=== PATIENT | male | born 1955 | race Caucasian/White ===

== ENCOUNTER 2016-05-11 16:13 | Inpatient (IN) | payer BC ==
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
--- NOTE | ~2016-05-11 | OP ---
Record Of Operation [facility] [address] [place]. [address] NAME: MEGAN SHOEMAKER : 59 STATUS : ADM IN PAT#: [id number] AGE: 60 ADM/REG DATE : 05/11/16 MR#: [id number] REPORT SERV DATE: 05/18/16 DICTATED BY: GIOVANA GARRISON DATE: 05/17/16 REPORT STATUS : Draft TRANSCRIBED BY: MODL DATE: 05/17/16 DATE OF PROCEDURE: 05/17/2016 PREOPERATIVE DIAGNOSIS: Septic right knee. POSTOPERATIVE DIAGNOSIS: Synovitis and septic knee. OPERATIVE PROCEDURE: Extensive synovectomy and debridement with arthroscopic lavage, right knee. OP REPORT: After successful induction of general inhalation anesthesia, administration of 1 g of vancomycin perioperative, the patient's thigh knee and leg were scrubbed, prepped, and draped usual sterile fashion. The leg was elevated and pneumatic tourniquet inflated to 300 mmHg without the use of the Esmarch bandage. A spinal needle was used to probe the lateral joint line. A standard medial lateral parapatellar portals were established under direct visualization. A cannula was placed first before reducing the scope and draining 30-40 mL of grossly purulent some slightly blood-tinged synovial fluid. A large shaver was introduced in the medial portal beginning in the medial compartment. Extensive synovectomy and debridement of scar tissue from previous fracture was carried out. There was some difficulty initially with visualization because of the marked scarring, 16-20 L of fluid were utilized to wash out the knee and accomplish of debridement. The suprapatellar pouch was debrided through both knee lateral portals as well as the intercondylar area in the lateral compartment. There was incongruity irregularity noted of the tibial plateau from the markedly comminuted fracture, but the menisci were surprisingly in good condition. At the occlusion of the procedure, another 3-4 L was run through and suctioned from the knee. The knee was instilled with 0.5% Marcaine with epinephrine. Incisions were closed with 3-0 nylon. A sterile bulky compression dressing was placed. The patient was stable intraoperatively. LITTLE/HELENA Giovana Garrison M.D. / [id number] CC: Elton Kemp MD Unknown
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
--- NOTE | ~2016-05-11 | OP ---
Record Of Operation [facility] [address] [place]. [address] NAME: MEGAN SHOEMAKER : 59 STATUS : ADM IN PAT#: [id number] AGE: 60 ADM/REG DATE : 05/11/16 MR#: [id number] REPORT SERV DATE: 05/20/16 DICTATED BY: GIOVANA GARRISON DATE: 05/19/16 REPORT STATUS : Draft TRANSCRIBED BY: HELENA DATE: 05/19/16 DATE OF PROCEDURE: 05/19/2016 PREOPERATIVE DIAGNOSES: 1. Right septic knee. 2. Posttraumatic synovitis. POSTOPERATIVE DIAGNOSES: 1. Right septic knee. 2. Posttraumatic synovitis. OPERATIVE PROCEDURE: Arthroscopic debridement and lavage of right knee. DESCRIPTION OF PROCEDURE: The patient was brought to operating room and after successful induction of general inhalation anesthesia, and administration of 1 g of Ancef preoperatively and intraoperatively was utilized. Right thigh, knee, leg, foot, and ankle scrubbed prepped and draped in usual sterile fashion. Pneumatic tourniquet was in place, but was not inflated. The previous sutures were removed and then the medial lateral portals were opened up with a trocar and cannula. The scope was introduced laterally and the suprapatellar pouch was examined with a large 5.5 serrated shaver utilized in the medial portal to debride postoperative hematoma and reactive synovitis in the suprapatellar pouch medially, centrally, as well as lateral compartment. Extensive lavage and debridement was carried out. There was no evidence of any purulent material at this point, but because of the bleeding and inflammatory changes, it was difficult to be certain of this. Approximately 20 to 25 L of fluid were run through suction and irrigated through the knee. At the conclusion of the procedure, it was attempted to be suctioned dry, the portals were left open to allow drainage. A sterile bulky compression dressing was utilized. The patient was stable intraoperatively. An estimated blood loss was 100 mL. He was awakened and returned to recovery room in satisfactory condition. LITTLE/HELENA Giovana Garrison M.D. / [id number] CC: Elton Kemp MD
[~2016-05-11 16:13] MED LIST: ACET500CAP PO; ACETIC ACID OT; ASAB PO; ASPER-FLEX10 % TOP; AT25 PO; ATEN50 PO; BACDS PO; CEFT5 PO; CENTRUM PO; CHLORASEPTIC PO; CLARIT10 PO; CRESTOR5 MG PO; DIABETA5 PO; FLONASE NAS; GGEXPSF PO; GGEXPUD PO; GLUCOPHAGE1000 MG PO; HALF81 PO; HUMALOG SC; HUMALOGPEN SC; IMOD PO; JANUVIA100 MG PO; LANTUSCART SC; LIPITOR40 PO; LOP25 PO; LOVENOX40 SC; METHOC500B PO; MIRALAXPKT PO; MVI PO; NYS500UDL PO; PERCOCET1 TA4 PO; PR12.5 PO; PRADAXA150 MG PO; PRILOSEC40 MG PO; PRIN20 PO; ROXICODONE15 MG PO; SOD CHLORIDE1 G1 PO; T PO; TUMSROLL PO; VITC500 PO; VITD PO; XARELTO20 MG PO; Z300 PO; [UNRECOGNIZED DRUG - OTHER] EX; [UNRECOGNIZED DRUG - OTHER] MT; [UNRECOGNIZED DRUG - OTHER] NAS; [UNRECOGNIZED DRUG - OTHER] TOP
[2016-05-11 16:23] LABS: ALLENS TEST Pos; BE (BASE EXCESS) -9.7 MEQ/L (0 +/- 2.5); CARBOXYHEMOGLOBIN 1.4 % (0-3); HCO3 (ACTUAL BICARBONATE) 11.6 MEQ/L (23-27); HEMOBLOGIN CONTENT 14.7 G/DL (14-18); INSTRUMENT SERIAL # 8087; METHEMOGLOBIN 0.2 % (0-3); O2 CONTENT 19.7 VOL% (18-24); PCO2 (CO2 TENSION) 18 MMHG (35-45); PO2 (O2 TENSION) 81 MMHG (79-93); SAMPLE Arterial; pH 7.44 (7.37-7.43)
[2016-05-11 16:45] LABS: INTERNATIONAL NORMAL RATI 1.5 UNITS (-); PARTIAL THROMBO TIME 32.3 SEC (22.5-37.2); PROTIME (NOT ORD) 18.4 SEC (12.0-14.5)
[2016-05-11 16:46] LABS: ER CBC TAT 0 Hrs 15 Mins; HEMATOCRIT 40.7 % (40.0-51.0); HEMOGLOBIN 14.5 g/dL (13.6-17.8); MEAN CORPUS HGB CONC 35.6 g/dL (32.0-36.0); MEAN CORPUSCULAR HEMOGLOB 30.9 pg (26.0-34.0); MEAN PLATELET VOLUME 10.3 fL (9.2-13.0); PLATELET COUNT 456 10/3/uL (150-400); RED CELL COUNT 4.69 10/6/uL (4.7-6.1); WHITE BLOOD CELLS 20.8 10/3/uL (4.5-10.5)
[2016-05-11 16:47] LABS: MANUAL DIFF YES %; MEAN CORPUSCULAR VOLUME 86.8 fL (80-100); RBC DISTRIBUTION WIDTH 12.2 % (12.0-16.0)
[2016-05-11] MEDS ORDERED: XARELTO20 MG PO (16:52)
[2016-05-11] MEDS ORDERED: LOP25 PO (16:52)
[2016-05-11] MEDS ORDERED: Z300 PO (16:52)
[2016-05-11] MEDS ORDERED: LANTUS SC (16:53)
[2016-05-11] MEDS ORDERED: ASABAYER PO (16:53)
[2016-05-11] MEDS ORDERED: HUMALOG SC (16:53)
[2016-05-11] MEDS ORDERED: ZESTRIL20 MG PO (16:53)
[2016-05-11] MEDS ORDERED: CALTRA600D PO (16:53)
[2016-05-11 16:57] LABS: LACTATE 6.2 MMOL/L (0.3-2.4)
[2016-05-11 16:58] LABS: A/G RATIO 0.5 (0.7-1.9); ALBUMIN 2.8 G/DL (3.5-5.0); ALKALINE PHOSPHATASE 90 U/L (45-117); BUN (BLOOD UREA NITROGEN) 33 MG/DL (6-23); CALCIUM, SERUM 11.1 MG/DL (8.5-10.4); CHLORIDE, SERUM 82 MMOL/L (96-112); CO2 (CARBON DIOXIDE) 17 MMOL/L (24-34); CPK 39 U/L (0-200); CREATININE 1.69 MG/DL (0.70-1.30); GFR AFRICAN AMERICAN 51 ML/MIN (>=60); GFR NON AFRICAN AMERICAN 44 ML/MIN (>=60); GLOBULIN 5.7 G/DL (2.5-4.1); GLUCOSE, SERUM 421 MG/DL (60-99); POTASSIUM, SERUM 4.2 MMOL/L (3.5-5.3); SGOT(AST) 8 U/L (5-40); SGPT(ALT) 13 U/L (5-65); SODIUM, SERUM 122 MMOL/L (135-148); TOTAL BILIRUBIN 0.7 MG/DL (0-1.2); TOTAL PROTEIN 8.5 G/DL (6.0-8.5); TROPONIN I <0.02 NG/ML (<0.05)
[2016-05-11 16:59] LABS: BAND NEUTROPHILS 33 %; ER DIFF TAT 0 Hrs 28 Mins; LYMPHOCYTES 5 %; LYMPHOCYTES ABSOLUTE (CALC) 1.04 10/3/uL (0.67-4.30); MONOCYTES 2 %; MONOCYTES ABSOLUTE (CALC) 0.42 10/3/uL (0.21-1.20); NEUTROPHILS ABSOLUTE (CALC) 19.34 10/3/uL (2.02-8.40); PLATELET ESTIMATE SLT INC (ADEQUATE); SEGMENTED NEUTROPHIL (0) 60 %; TOTAL NUCLEATED CELLS 100
[2016-05-11 18:37] LABS: ASCORBIC ACID (UR NOT ORDER) NEG (NEG); BILIRUBIN, URINE NEGATIVE (NEG); ER URINALYSIS TAT 0 Hrs 12 Mins; KETONE, URINE 80 MG/DL (NEG); LEUKOCYTE ESTERASE(NOT OR NEG (NEG); NITRITE (URINE) NEG (NEG); WBC (NOT ORDERED) (RFLEX) 2 (0-5)
[2016-05-12 01:57] LABS: HEMOGLOBIN 11.3 g/dL (13.6-17.8); MEAN CORPUS HGB CONC 35.2 g/dL (32.0-36.0); MEAN CORPUSCULAR VOLUME 85.1 fL (80-100); MEAN PLATELET VOLUME 10.2 fL (9.2-13.0); PLATELET COUNT 351 10/3/uL (150-400); RBC DISTRIBUTION WIDTH 12.5 % (12.0-16.0); RED CELL COUNT 3.77 10/6/uL (4.7-6.1); WHITE BLOOD CELLS 15.2 10/3/uL (4.5-10.5)
[2016-05-12 01:58] LABS: HEMATOCRIT 32.1 % (40.0-51.0); MANUAL DIFF YES %
[2016-05-12 02:09] LABS: GFR AFRICAN AMERICAN 77 ML/MIN (>=60); GFR NON AFRICAN AMERICAN 66 ML/MIN (>=60); POTASSIUM, SERUM 3.9 MMOL/L (3.5-5.3); SGOT(AST) 8 U/L (5-40); SGPT(ALT) 11 U/L (5-65)
[2016-05-12 02:14] LABS: A/G RATIO 0.5 (0.7-1.9); ALBUMIN 2.1 G/DL (3.5-5.0); ALKALINE PHOSPHATASE 58 U/L (45-117); BUN (BLOOD UREA NITROGEN) 37 MG/DL (6-23); CHLORIDE, SERUM 96 MMOL/L (96-112); CO2 (CARBON DIOXIDE) 25 MMOL/L (24-34); GLOBULIN 4.3 G/DL (2.5-4.1); GLUCOSE, SERUM 215 MG/DL (60-99); SODIUM, SERUM 133 MMOL/L (135-148); TOTAL BILIRUBIN 0.2 MG/DL (0-1.2); TOTAL PROTEIN 6.4 G/DL (6.0-8.5)
[2016-05-12 02:28] LABS: BAND NEUTROPHILS 17 %; BASOPHILS 1 %; BASOPHILS ABSOLUTE (CALC) 0.15 10/3/uL (0.0-0.16); LYMPHOCYTES 7 %; LYMPHOCYTES ABSOLUTE (CALC) 1.06 10/3/uL (0.67-4.30); MONOCYTES 1 %; MONOCYTES ABSOLUTE (CALC) 0.15 10/3/uL (0.21-1.20); NEUTROPHILS ABSOLUTE (CALC) 13.83 10/3/uL (2.02-8.40); PLATELET ESTIMATE ADQ (ADEQUATE); SEGMENTED NEUTROPHIL (0) 74 %; TOTAL NUCLEATED CELLS 100
[2016-05-12 02:29] LABS: RBC MORPHOLOGY NORM (NORMAL)
[2016-05-12 02:59] LABS: PROCALCITONIN 23.84 ng/mL (<0.5)
[2016-05-12 04:06] LABS: INSTRUMENT SERIAL # 8083; PCO2 (CO2 TENSION) 30 MMHG (35-45); PO2 (O2 TENSION) 62 MMHG (79-93); pH 7.44 (7.37-7.43)
[2016-05-12 04:07] LABS: ALLENS TEST Pos; HEMOBLOGIN CONTENT 13.8 G/DL (14-18); METHEMOGLOBIN 0.1 % (0-3); O2 CONTENT 17.9 VOL% (18-24); OPERATOR ID 32193; SAMPLE Arterial
[2016-05-12 06:49] LABS: BUN (BLOOD UREA NITROGEN) 35 MG/DL (6-23); CALCIUM, SERUM 8.9 MG/DL (8.5-10.4); CHLORIDE, SERUM 97 MMOL/L (96-112); CO2 (CARBON DIOXIDE) 22 MMOL/L (24-34); CREATININE 0.86 MG/DL (0.70-1.30); GFR AFRICAN AMERICAN 111 ML/MIN (>=60); GFR NON AFRICAN AMERICAN 96 ML/MIN (>=60); GLUCOSE, SERUM 190 MG/DL (60-99); POTASSIUM, SERUM 3.7 MMOL/L (3.5-5.3); SODIUM, SERUM 129 MMOL/L (135-148)
[2016-05-12 12:50] LABS: BUN (BLOOD UREA NITROGEN) 34 MG/DL (6-23); CALCIUM, SERUM 9.1 MG/DL (8.5-10.4); CHLORIDE, SERUM 95 MMOL/L (96-112); CO2 (CARBON DIOXIDE) 25 MMOL/L (24-34); CREATININE 0.76 MG/DL (0.70-1.30); GFR AFRICAN AMERICAN 117 ML/MIN (>=60); GFR NON AFRICAN AMERICAN 101 ML/MIN (>=60); GLUCOSE, SERUM 196 MG/DL (60-99); POTASSIUM, SERUM 3.8 MMOL/L (3.5-5.3); SODIUM, SERUM 131 MMOL/L (135-148)
[2016-05-12 14:33] LABS: ALBUMIN 2.2 G/DL (3.5-5.0); ALKALINE PHOSPHATASE 57 U/L (45-117); SGOT(AST) 12 U/L (5-40); SGPT(ALT) 12 U/L (5-65); TOTAL BILIRUBIN 0.4 MG/DL (0-1.2); TOTAL PROTEIN 5.6 G/DL (6.0-8.5)
[2016-05-12 14:34] LABS: DIRECT BILIRUBIN < 0.1 MG/DL (0.0-0.4); INDIRECT BILIRUBIN(NOT ORDER) 0.3 MG/DL (0.1-0.9)
[2016-05-12 19:06] LABS: BUN (BLOOD UREA NITROGEN) 31 MG/DL (6-23); CALCIUM, SERUM 9.2 MG/DL (8.5-10.4); CHLORIDE, SERUM 97 MMOL/L (96-112); CO2 (CARBON DIOXIDE) 24 MMOL/L (24-34); CREATININE 0.72 MG/DL (0.70-1.30); GFR AFRICAN AMERICAN 119 ML/MIN (>=60); GFR NON AFRICAN AMERICAN 103 ML/MIN (>=60); GLUCOSE, SERUM 205 MG/DL (60-99); POTASSIUM, SERUM 3.4 MMOL/L (3.5-5.3); SODIUM, SERUM 130 MMOL/L (135-148)
[2016-05-12 22:41] LABS: CALCIUM, SERUM 9.4 MG/DL (8.5-10.4); CHLORIDE, SERUM 98 MMOL/L (96-112); CO2 (CARBON DIOXIDE) 23 MMOL/L (24-34); CREATININE 0.75 MG/DL (0.70-1.30); GFR AFRICAN AMERICAN 117 ML/MIN (>=60); GFR NON AFRICAN AMERICAN 101 ML/MIN (>=60); GLUCOSE, SERUM 178 MG/DL (60-99); POTASSIUM, SERUM 3.6 MMOL/L (3.5-5.3); SODIUM, SERUM 131 MMOL/L (135-148)
[2016-05-12 22:42] LABS: BUN (BLOOD UREA NITROGEN) 27 MG/DL (6-23)
[2016-05-13 04:43] LABS: BUN (BLOOD UREA NITROGEN) 24 MG/DL (6-23); CALCIUM, SERUM 8.9 MG/DL (8.5-10.4); CHLORIDE, SERUM 96 MMOL/L (96-112); CO2 (CARBON DIOXIDE) 24 MMOL/L (24-34); CREATININE 0.53 MG/DL (0.70-1.30); GFR AFRICAN AMERICAN 135 ML/MIN (>=60); GFR NON AFRICAN AMERICAN 117 ML/MIN (>=60); GLUCOSE, SERUM 189 MG/DL (60-99); POTASSIUM, SERUM 3.6 MMOL/L (3.5-5.3); SODIUM, SERUM 131 MMOL/L (135-148)
[2016-05-13 04:46] LABS: PHOSPHORUS, SERUM 1.8 MG/DL (2.5-4.5)
[2016-05-13 05:20] LABS: BASOPHILS 0.1 %; BASOPHILS ABSOLUTE 0.02 10/3/uL (0.0-0.16); EOSINOPHILS 0.6 %; EOSINOPHILS ABSOLUTE 0.11 10/3/uL (0.0-0.53); HEMATOCRIT 31.2 % (40.0-51.0); HEMOGLOBIN 10.7 g/dL (13.6-17.8); IMMATURE GRANULOCYTES 0.4 %; IMMATURE GRANULOCYTES ABSOLUTE 0.08 10/3/uL (0.0-0.11); LYMPHOCYTES 10.3 %; LYMPHOCYTES ABSOLUTE 1.84 10/3/uL (0.67-4.30); MEAN CORPUS HGB CONC 34.3 g/dL (32.0-36.0); MEAN CORPUSCULAR HEMOGLOB 30.1 pg (26.0-34.0); MEAN PLATELET VOLUME 10.1 fL (9.2-13.0); MONOCYTES ABSOLUTE 1.79 10/3/uL (0.21-1.20); NEUTROPHILS 78.6 %; NEUTROPHILS ABSOLUTE 14.06 10/3/uL (2.02-8.40); PLATELET COUNT 349 10/3/uL (150-400); RBC DISTRIBUTION WIDTH 12.7 % (12.0-16.0); RED CELL COUNT 3.55 10/6/uL (4.7-6.1); WHITE BLOOD CELLS 17.9 10/3/uL (4.5-10.5)
[2016-05-13 05:30] LABS: MANUAL DIFF NO %; MEAN CORPUSCULAR VOLUME 87.9 fL (80-100)
[2016-05-14 04:19] LABS: BASOPHILS 0.2 %; BASOPHILS ABSOLUTE 0.03 10/3/uL (0.0-0.16); EOSINOPHILS 1.4 %; HEMATOCRIT 30.9 % (40.0-51.0); HEMOGLOBIN 10.7 g/dL (13.6-17.8); IMMATURE GRANULOCYTES 0.5 %; IMMATURE GRANULOCYTES ABSOLUTE 0.07 10/3/uL (0.0-0.11); LYMPHOCYTES 15.4 %; LYMPHOCYTES ABSOLUTE 2.27 10/3/uL (0.67-4.30); MEAN CORPUS HGB CONC 34.6 g/dL (32.0-36.0); MEAN CORPUSCULAR HEMOGLOB 30.3 pg (26.0-34.0); MEAN CORPUSCULAR VOLUME 87.5 fL (80-100); MEAN PLATELET VOLUME 9.7 fL (9.2-13.0); MONOCYTES 8.4 %; MONOCYTES ABSOLUTE 1.23 10/3/uL (0.21-1.20); NEUTROPHILS 74.1 %; NEUTROPHILS ABSOLUTE 10.93 10/3/uL (2.02-8.40); PLATELET COUNT 360 10/3/uL (150-400); RBC DISTRIBUTION WIDTH 12.6 % (12.0-16.0); RED CELL COUNT 3.53 10/6/uL (4.7-6.1); WHITE BLOOD CELLS 14.7 10/3/uL (4.5-10.5)
[2016-05-14 04:20] LABS: MANUAL DIFF NO %
[2016-05-14 04:32] LABS: BUN (BLOOD UREA NITROGEN) 12 MG/DL (6-23); CALCIUM, SERUM 8.7 MG/DL (8.5-10.4); CHLORIDE, SERUM 95 MMOL/L (96-112); CO2 (CARBON DIOXIDE) 27 MMOL/L (24-34); CREATININE 0.51 MG/DL (0.70-1.30); GFR AFRICAN AMERICAN 137 ML/MIN (>=60); GFR NON AFRICAN AMERICAN 118 ML/MIN (>=60); GLUCOSE, SERUM 171 MG/DL (60-99); PHOSPHORUS, SERUM 2.3 MG/DL (2.5-4.5); POTASSIUM, SERUM 3.6 MMOL/L (3.5-5.3); SODIUM, SERUM 131 MMOL/L (135-148)
[2016-05-14 05:12] LABS: PROCALCITONIN 3.94 ng/mL (<0.5)
[2016-05-14 13:27] LABS: POTASSIUM, SERUM 4.8 MMOL/L (3.5-5.3)
[2016-05-15 06:53] LABS: BASOPHILS 0.3 %; BASOPHILS ABSOLUTE 0.05 10/3/uL (0.0-0.16); EOSINOPHILS ABSOLUTE 0.46 10/3/uL (0.0-0.53); HEMATOCRIT 31.4 % (40.0-51.0); HEMOGLOBIN 10.8 g/dL (13.6-17.8); IMMATURE GRANULOCYTES 0.9 %; IMMATURE GRANULOCYTES ABSOLUTE 0.14 10/3/uL (0.0-0.11); LYMPHOCYTES 19.3 %; LYMPHOCYTES ABSOLUTE 2.98 10/3/uL (0.67-4.30); MEAN CORPUS HGB CONC 34.4 g/dL (32.0-36.0); MEAN CORPUSCULAR VOLUME 87.2 fL (80-100); MEAN PLATELET VOLUME 9.8 fL (9.2-13.0); MONOCYTES 11.7 %; MONOCYTES ABSOLUTE 1.81 10/3/uL (0.21-1.20); NEUTROPHILS 64.8 %; NEUTROPHILS ABSOLUTE 10.03 10/3/uL (2.02-8.40); PLATELET COUNT 403 10/3/uL (150-400); RBC DISTRIBUTION WIDTH 12.4 % (12.0-16.0); WHITE BLOOD CELLS 15.5 10/3/uL (4.5-10.5)
[2016-05-15 06:54] LABS: MANUAL DIFF NO %
[2016-05-15 07:05] LABS: BUN (BLOOD UREA NITROGEN) 7 MG/DL (6-23); CALCIUM, SERUM 8.8 MG/DL (8.5-10.4); CHLORIDE, SERUM 97 MMOL/L (96-112); CO2 (CARBON DIOXIDE) 26 MMOL/L (24-34); CREATININE 0.44 MG/DL (0.70-1.30); GFR AFRICAN AMERICAN 146 ML/MIN (>=60); GFR NON AFRICAN AMERICAN 126 ML/MIN (>=60); GLUCOSE, SERUM 158 MG/DL (60-99); PHOSPHORUS, SERUM 2.8 MG/DL (2.5-4.5); POTASSIUM, SERUM 3.9 MMOL/L (3.5-5.3); SODIUM, SERUM 132 MMOL/L (135-148)
[2016-05-15 07:40] LABS: PROCALCITONIN 1.51 ng/mL (<0.5)
[2016-05-16 05:58] LABS: BASOPHILS 0.3 %; BASOPHILS ABSOLUTE 0.04 10/3/uL (0.0-0.16); EOSINOPHILS 4.5 %; EOSINOPHILS ABSOLUTE 0.66 10/3/uL (0.0-0.53); HEMATOCRIT 32.1 % (40.0-51.0); HEMOGLOBIN 10.9 g/dL (13.6-17.8); IMMATURE GRANULOCYTES 1.8 %; IMMATURE GRANULOCYTES ABSOLUTE 0.27 10/3/uL (0.0-0.11); LYMPHOCYTES ABSOLUTE 2.34 10/3/uL (0.67-4.30); MEAN CORPUSCULAR HEMOGLOB 29.2 pg (26.0-34.0); MEAN CORPUSCULAR VOLUME 86.1 fL (80-100); MEAN PLATELET VOLUME 9.8 fL (9.2-13.0); MONOCYTES 14.9 %; MONOCYTES ABSOLUTE 2.18 10/3/uL (0.21-1.20); NEUTROPHILS 62.5 %; NEUTROPHILS ABSOLUTE 9.18 10/3/uL (2.02-8.40); PLATELET COUNT 501 10/3/uL (150-400); RBC DISTRIBUTION WIDTH 12.3 % (12.0-16.0); RED CELL COUNT 3.73 10/6/uL (4.7-6.1); WHITE BLOOD CELLS 14.7 10/3/uL (4.5-10.5)
[2016-05-16 05:59] LABS: MANUAL DIFF NO %
[2016-05-16 06:11] LABS: ALBUMIN 2.2 G/DL (3.5-5.0); BUN (BLOOD UREA NITROGEN) 6 MG/DL (6-23); CALCIUM, SERUM 8.8 MG/DL (8.5-10.4); CHLORIDE, SERUM 93 MMOL/L (96-112); CO2 (CARBON DIOXIDE) 28 MMOL/L (24-34); CREATININE 0.44 MG/DL (0.70-1.30); GFR AFRICAN AMERICAN 146 ML/MIN (>=60); GFR NON AFRICAN AMERICAN 126 ML/MIN (>=60); GLUCOSE, SERUM 164 MG/DL (60-99); PHOSPHORUS, SERUM 3.2 MG/DL (2.5-4.5); SODIUM, SERUM 132 MMOL/L (135-148)
[2016-05-16 14:44] LABS: FREE T4 1.62 NG/DL (0.76-1.46)
[2016-05-17 06:24] LABS: BASOPHILS 0.1 %; BASOPHILS ABSOLUTE 0.01 10/3/uL (0.0-0.16); EOSINOPHILS 0.2 %; EOSINOPHILS ABSOLUTE 0.03 10/3/uL (0.0-0.53); HEMATOCRIT 34.8 % (40.0-51.0); HEMOGLOBIN 11.9 g/dL (13.6-17.8); IMMATURE GRANULOCYTES 2.9 %; IMMATURE GRANULOCYTES ABSOLUTE 0.42 10/3/uL (0.0-0.11); LYMPHOCYTES 10.6 %; LYMPHOCYTES ABSOLUTE 1.56 10/3/uL (0.67-4.30); MEAN CORPUS HGB CONC 34.2 g/dL (32.0-36.0); MEAN CORPUSCULAR HEMOGLOB 29.7 pg (26.0-34.0); MEAN CORPUSCULAR VOLUME 86.8 fL (80-100); MEAN PLATELET VOLUME 9.7 fL (9.2-13.0); MONOCYTES 10.6 %; MONOCYTES ABSOLUTE 1.55 10/3/uL (0.21-1.20); NEUTROPHILS 75.6 %; PLATELET COUNT 647 10/3/uL (150-400); RED CELL COUNT 4.01 10/6/uL (4.7-6.1); WHITE BLOOD CELLS 14.7 10/3/uL (4.5-10.5)
[2016-05-17 06:26] LABS: MANUAL DIFF NO %
[2016-05-17 06:39] LABS: CHLORIDE, SERUM 89 MMOL/L (96-112); CO2 (CARBON DIOXIDE) 29 MMOL/L (24-34); CREATININE 0.73 MG/DL (0.70-1.30); GFR AFRICAN AMERICAN 119 ML/MIN (>=60); GFR NON AFRICAN AMERICAN 102 ML/MIN (>=60); SODIUM, SERUM 128 MMOL/L (135-148)
[2016-05-17 06:41] LABS: BUN (BLOOD UREA NITROGEN) 13 MG/DL (6-23); GLUCOSE, SERUM 364 MG/DL (60-99); POTASSIUM, SERUM 5.2 MMOL/L (3.5-5.3)
[2016-05-17 13:37] LABS: BD FL LYMPH (NOT ORD) 0 %; BF BASO (NOT OF) 0 %; BF LARGE MONONUCLEAR 4 %; BODY FLUID EOS (NOT ORD) 0 %; BODY FLUID SEG (NOT ORD) 96 %
[2016-05-17 13:38] LABS: BF TOTAL CELL CT (NOT ORD 474528 /MM3; BODY FLUID RBC (NOT ORD) 768000 /MM3
[2016-05-17 14:58] LABS: BD FL SOURCE (NOT ORD) KNEE
[2016-05-18 05:21] LABS: HEMATOCRIT 33.5 % (40.0-51.0); HEMOGLOBIN 11.4 g/dL (13.6-17.8); MEAN CORPUSCULAR HEMOGLOB 29.8 pg (26.0-34.0); MEAN CORPUSCULAR VOLUME 87.7 fL (80-100); MEAN PLATELET VOLUME 9.5 fL (9.2-13.0); PLATELET COUNT 683 10/3/uL (150-400); RBC DISTRIBUTION WIDTH 12.3 % (12.0-16.0); RED CELL COUNT 3.82 10/6/uL (4.7-6.1)
[2016-05-18 05:24] LABS: MANUAL DIFF YES %
[2016-05-18 05:31] LABS: A/G RATIO 0.5 (0.7-1.9); ALBUMIN 2.2 G/DL (3.5-5.0); ALKALINE PHOSPHATASE 64 U/L (45-117); BUN (BLOOD UREA NITROGEN) 13 MG/DL (6-23); CALCIUM, SERUM 8.9 MG/DL (8.5-10.4); CHLORIDE, SERUM 92 MMOL/L (96-112); CO2 (CARBON DIOXIDE) 27 MMOL/L (24-34); CREATININE 0.72 MG/DL (0.70-1.30); GFR AFRICAN AMERICAN 119 ML/MIN (>=60); GFR NON AFRICAN AMERICAN 103 ML/MIN (>=60); GLOBULIN 4.2 G/DL (2.5-4.1); POTASSIUM, SERUM 4.4 MMOL/L (3.5-5.3); SGOT(AST) 13 U/L (5-40); SGPT(ALT) 18 U/L (5-65); SODIUM, SERUM 130 MMOL/L (135-148); TOTAL BILIRUBIN 0.2 MG/DL (0-1.2); TOTAL PROTEIN 6.4 G/DL (6.0-8.5)
[2016-05-18 05:32] LABS: GLUCOSE, SERUM 238 MG/DL (60-99)
[2016-05-18 05:44] LABS: BAND NEUTROPHILS 4 %; EOSINOPHILS 1 %; EOSINOPHILS ABSOLUTE (CALC) 0.15 10/3/uL (0.0-0.53); IMMATURE GRANS ABSOLUTE (CALC) 0.45 10/3/uL (0.0-0.11); LYMPHOCYTES 14 %; METAMYELOCYTES 2 %; MONOCYTES 7 %; MONOCYTES ABSOLUTE (CALC) 1.05 10/3/uL (0.21-1.20); MYELOCYTES 1 %; NEUTROPHILS ABSOLUTE (CALC) 11.25 10/3/uL (2.02-8.40); SEGMENTED NEUTROPHIL (0) 71 %; TOTAL NUCLEATED CELLS 100
[2016-05-18 05:45] LABS: PLATELET ESTIMATE INC (ADEQUATE); RBC MORPHOLOGY NORM (NORMAL)
[2016-05-18 06:42] LABS: PROCALCITONIN 0.34 ng/mL (<0.5)
[2016-05-19 05:54] LABS: HEMATOCRIT 34.6 % (40.0-51.0); HEMOGLOBIN 11.7 g/dL (13.6-17.8); MEAN CORPUS HGB CONC 33.8 g/dL (32.0-36.0); MEAN CORPUSCULAR HEMOGLOB 29.8 pg (26.0-34.0); MEAN CORPUSCULAR VOLUME 88.3 fL (80-100); MEAN PLATELET VOLUME 9.2 fL (9.2-13.0); RBC DISTRIBUTION WIDTH 12.2 % (12.0-16.0); RED CELL COUNT 3.92 10/6/uL (4.7-6.1); WHITE BLOOD CELLS 13.2 10/3/uL (4.5-10.5)
[2016-05-19 05:55] LABS: PLATELET COUNT 707 10/3/uL (150-400)
[2016-05-19 05:56] LABS: MANUAL DIFF YES %
[2016-05-19 06:14] LABS: A/G RATIO 0.6 (0.7-1.9); ALBUMIN 2.4 G/DL (3.5-5.0); ALKALINE PHOSPHATASE 65 U/L (45-117); BUN (BLOOD UREA NITROGEN) 14 MG/DL (6-23); CALCIUM, SERUM 9.2 MG/DL (8.5-10.4); CHLORIDE, SERUM 94 MMOL/L (96-112); CO2 (CARBON DIOXIDE) 29 MMOL/L (24-34); CREATININE 0.61 MG/DL (0.70-1.30); GFR AFRICAN AMERICAN 128 ML/MIN (>=60); GFR NON AFRICAN AMERICAN 110 ML/MIN (>=60); GLOBULIN 4.3 G/DL (2.5-4.1); PHOSPHORUS, SERUM 2.5 MG/DL (2.5-4.5); POTASSIUM, SERUM 4.2 MMOL/L (3.5-5.3); SGOT(AST) 11 U/L (5-40); SGPT(ALT) 18 U/L (5-65); SODIUM, SERUM 133 MMOL/L (135-148); TOTAL BILIRUBIN 0.2 MG/DL (0-1.2); TOTAL PROTEIN 6.7 G/DL (6.0-8.5)
[2016-05-19 06:21] LABS: GLUCOSE, SERUM 187 MG/DL (60-99)
[2016-05-19 06:52] LABS: BAND NEUTROPHILS 2 %; BASOPHILS 1 %; BASOPHILS ABSOLUTE (CALC) 0.13 10/3/uL (0.0-0.16); EOSINOPHILS 4 %; EOSINOPHILS ABSOLUTE (CALC) 0.53 10/3/uL (0.0-0.53); LYMPHOCYTES 30 %; LYMPHOCYTES ABSOLUTE (CALC) 3.96 10/3/uL (0.67-4.30); MONOCYTES 6 %; MONOCYTES ABSOLUTE (CALC) 0.79 10/3/uL (0.21-1.20); NEUTROPHILS ABSOLUTE (CALC) 7.79 10/3/uL (2.02-8.40); SEGMENTED NEUTROPHIL (0) 57 %; TOTAL NUCLEATED CELLS 100
[2016-05-19 07:00] LABS: RBC MORPHOLOGY NORM (NORMAL)
[2016-05-20 06:39] LABS: HEMATOCRIT 32.6 % (40.0-51.0); MEAN CORPUS HGB CONC 33.7 g/dL (32.0-36.0); MEAN CORPUSCULAR HEMOGLOB 30.1 pg (26.0-34.0); MEAN CORPUSCULAR VOLUME 89.3 fL (80-100); RBC DISTRIBUTION WIDTH 12.4 % (12.0-16.0); RED CELL COUNT 3.65 10/6/uL (4.7-6.1)
[2016-05-20 06:40] LABS: MANUAL DIFF YES %; PLATELET COUNT 712 10/3/uL (150-400); WHITE BLOOD CELLS 18.8 10/3/uL (4.5-10.5)
[2016-05-20 06:47] LABS: A/G RATIO 0.6 (0.7-1.9); ALBUMIN 2.4 G/DL (3.5-5.0); ALKALINE PHOSPHATASE 60 U/L (45-117); CALCIUM, SERUM 9.2 MG/DL (8.5-10.4); CHLORIDE, SERUM 91 MMOL/L (96-112); CO2 (CARBON DIOXIDE) 29 MMOL/L (24-34); CREATININE 0.63 MG/DL (0.70-1.30); GFR AFRICAN AMERICAN 126 ML/MIN (>=60); GFR NON AFRICAN AMERICAN 109 ML/MIN (>=60); POTASSIUM, SERUM 4.7 MMOL/L (3.5-5.3); SGOT(AST) 12 U/L (5-40); SGPT(ALT) 17 U/L (5-65); SODIUM, SERUM 130 MMOL/L (135-148); TOTAL BILIRUBIN 0.3 MG/DL (0-1.2); TOTAL PROTEIN 6.4 G/DL (6.0-8.5)
[2016-05-20 06:49] LABS: BUN (BLOOD UREA NITROGEN) 18 MG/DL (6-23); GLUCOSE, SERUM 129 MG/DL (60-99); PHOSPHORUS, SERUM 3.9 MG/DL (2.5-4.5)
[2016-05-20 07:34] LABS: BAND NEUTROPHILS 10 %; BASOPHILS 1 %; BASOPHILS ABSOLUTE (CALC) 0.19 10/3/uL (0.0-0.16); EOSINOPHILS 5 %; EOSINOPHILS ABSOLUTE (CALC) 0.94 10/3/uL (0.0-0.53); IMMATURE GRANS ABSOLUTE (CALC) 0.56 10/3/uL (0.0-0.11); LYMPHOCYTES 20 %; LYMPHOCYTES ABSOLUTE (CALC) 3.76 10/3/uL (0.67-4.30); METAMYELOCYTES 2 %; MONOCYTES 3 %; MONOCYTES ABSOLUTE (CALC) 0.56 10/3/uL (0.21-1.20); MYELOCYTES 1 %; NEUTROPHILS ABSOLUTE (CALC) 12.78 10/3/uL (2.02-8.40); SEGMENTED NEUTROPHIL (0) 58 %; TOTAL NUCLEATED CELLS 100; TOXIC GRANULATION 2+
[2016-05-20 07:35] LABS: RBC MORPHOLOGY NORM (NORMAL)
[2016-11-26] MEDS ORDERED: Z300 PO (10:25)
[2016-11-26] MEDS ORDERED: ASABAYER PO (10:26)
[2016-11-26] MEDS ORDERED: NORCO1 TA1 PO (10:26)
[2016-11-26] MEDS ORDERED: ZESTRIL20 MG PO (10:27)
[2016-11-26] MEDS ORDERED: METHOC750B PO (10:27)
[2016-11-26] MEDS ORDERED: LEVEMFLXPN SC (10:27)
[2016-11-26] MEDS ORDERED: LOP25 PO (10:28)
[2016-11-26] MEDS ORDERED: XARELTO20 MG PO (10:28)
[2016-11-26] MEDS ORDERED: T PO (10:29)
[2016-11-26] MEDS ORDERED: VITAMIN D2000 UNIT PO (10:29)
[2016-11-26] MEDS ORDERED: LIPITOR20 PO (10:29)
[2016-11-26] MEDS ORDERED: SUPER B COMP PO (10:30)
[2016-11-26] MEDS ORDERED: VITC500 PO (10:30)
[2016-11-26] MEDS ORDERED: CALTRAT600 PO (10:30)
[2016-12-04] MEDS ORDERED: TYLENOL COL5 PO (14:50)
[2016-12-04] MEDS ORDERED: ACET500CAP PO (14:50)
[2016-12-04] MEDS ORDERED: GGDM5ML PO (14:56)
[2016-12-04] MEDS ORDERED: MAALOX PO (14:57)
[2016-12-04] MEDS ORDERED: HUMALOGPEN SC (14:58)
[2016-12-04] MEDS ORDERED: NEO-OINT15 TOP (14:58)
== END 2016-05-20 18:07 | DRG 853 ==
LOC: ER 16:13 → MIC 20:04 → 6NO 05-14 15:38
PROVIDERS: Hospitalist; Internal Medicine; Internal Medicine Critical Care Medicine; Internal Medicine Infectious Disease; Internal Medicine Pulmonary Disease; Orthopaedic Surgery
PROC: 0SBC4ZZ Excision of Right Knee Joint, Percutaneous Endoscopic Approach (ICD-10-PCS; 2016-05-17)
PROC: 0S9C3ZX Drainage of Right Knee Joint, Percutaneous Approach, Diagnostic (ICD-10-PCS; 2016-05-17)
PROC: 0SBC4ZZ Excision of Right Knee Joint, Percutaneous Endoscopic Approach (ICD-10-PCS; principal; 2016-05-17 15:45)
PROC: 0SBC4ZZ Excision of Right Knee Joint, Percutaneous Endoscopic Approach (ICD-10-PCS; 2016-05-19)
PROC: 02HV33Z Insertion of Infusion Device into Superior Vena Cava, Percutaneous Approach (ICD-10-PCS; 2016-05-20)
PROC: 4A02X4A Measurement of Cardiac Electrical Activity, Guidance, External Approach (ICD-10-PCS; 2016-05-20)
DX: A40.1 Sepsis due to streptococcus, group B (principal); E13.10 Other specified diabetes mellitus with ketoacidosis without coma; I50.23 Acute on chronic systolic (congestive) heart failure; N17.9 Acute kidney failure, unspecified; E87.4 Mixed disorder of acid-base balance; K31.84 Gastroparesis; J44.1 Chronic obstructive pulmonary disease with (acute) exacerbation; E11.43 Type 2 diabetes mellitus with diabetic autonomic (poly)neuropathy; S82.144 Nondisplaced bicondylar fracture of right tibia; I48.91 Unspecified atrial fibrillation; I25.10 Atherosclerotic heart disease of native coronary artery without angina pectoris; E78.5 Hyperlipidemia, unspecified; M10.9 Gout, unspecified; F09 Unspecified mental disorder due to known physiological condition; M65.161 Other infective (teno)synovitis, right knee; V89.2XXD Person injured in unspecified motor-vehicle accident, traffic, subsequent encounter; K59.00 Constipation, unspecified; D50.9 Iron deficiency anemia, unspecified; E87.6 Hypokalemia; Z95.1 Presence of aortocoronary bypass graft; Z88.0 Allergy status to penicillin; Z79.01 Long term (current) use of anticoagulants; Z95.5 Presence of coronary angioplasty implant and graft; Z79.4 Long term (current) use of insulin; Z79.82 Long term (current) use of aspirin
CPT/HCPCS: 36569; 36600; 70450; 71010; 73560-RT; 80048; 80053; 80069; 80076; 81001; 82140; 82150; 82550; 82805; 82962; 83036; 83605; 83690; 83735; 84100; 84132; 84145; 84439; 84484; 84550; 85025; 85610; 85730; 87040; 87070; 87075; 87077; 87150; 87186; 87205; 87641; 88304; 89051; 93005; 93975; 96365; 96366; 96367; 96375; 97163-GP; 97164-GP; 97530-GP; 99291; 99292; A9270-GY; C1751; C8929; J0330; J0456; J0690; J1170; J2250; J2270; J2370; J2405; J2765; J3010; J3370; Q9957